=== PATIENT | male | born 1995 | race Caucasian/White ===

== ENCOUNTER 2021-10-02 09:54 | Emergency (ER) | payer OTHER ==
[2021-10-02] MEDS ORDERED: predniSONE 10 MG Tab ONE (11:40)
== END 2021-10-02 12:14 | disposition home or self-care (01) ==
LOC: LB.ED 09:54
DX: J45.901 Unspecified asthma with (acute) exacerbation (principal)
CPT/HCPCS: 99284; J7512; 99282